=== PATIENT | male | born 1960 | race Caucasian/White ===

== ENCOUNTER 2017-03-05 13:21 | Emergency (ER) | payer SELFPAY ==
[~2017-03-05] VITALS: Wt 76.0 kg
[~2017-03-05 13:21] MED LIST: ASPI81TA3 PO; ATOR40TA68 PO; HYDR12.53 PO; LISI10TA2 PO
== END 2017-03-05 16:24 | disposition left against medical advice (07) ==
LOC: E/R 13:21
DX: Z53.21 Procedure and treatment not carried out due to patient leaving prior to being seen by health care provider (principal)